=== PATIENT | female | born 1980 | race American Indian/Alaskan Native ===

== ENCOUNTER 2021-01-03 21:25 | Emergency (ER) | payer MEDICAID ==
--- NOTE | 2021-01-04 06:19 | Emergency Department Report ---
ED General Adult HPI - General Chief complaint: Upper Respiratory Infection Stated complaint: COLD LIKE SYMPTOMS/ASTHMA Time Seen by Provider: 01/04/21 05:08 Source: patient Mode of arrival: Ambulatory Limitations: No Limitations - History of Present Illness Initial comments: Patient 40-year-old -N[place]alese female who presents for asthma, patient st ates cough wheezing malaise. She denies fevers or chills. Patient states out of albuterol inhaler for the past 3 days. Patient declines chest x-ray as symptoms are rated at 3/10. Patient does have a primary care doctor has been unable to make appointment. Current symptoms are exacerbated by activity. Current symptoms are relieved by rest. This is normal course of asthma exacerbation for this patient. - Related Data Previous Rx's Medication Instructions Recorded Last Taken Type Albuterol Mdi (or & Nicu Only) 2 puff IH QID PRN #8.5 gram 01/04/21 Unknown Rx [ProAir HFA Inhaler] predniSONE [Deltasone] 40 mg PO QDAY 5 Days #10 tab 01/04/21 Unknown Rx ED Review of Systems ROS: Stated complaint: COLD LIKE SYMPTOMS/ASTHMA Other details as noted in HPI Constitutional: malaise ENT: congestion Respiratory: cough, shortness of breath, wheezing Cardiovascular: denies: chest pain, palpitations Endocrine: no symptoms reported Gastrointestinal: denies: abdominal pain, nausea, vomiting, diarrhea Genitourinary: denies: urgency, dysuria, discharge Musculoskeletal: denies: back pain, joint swelling, arthralgia Skin: denies: rash, lesions Neurological: denies: headache, weakness, paresthesias Psychiatric: denies: anxiety, depression Hematological/Lymphatic: denies: easy bleeding, easy bruising ED Past Medical Hx - Past Medical History Previous Medical History?: Yes Hx Asthma: Yes - Surgical History Past Surgical History?: No - Social History Smoking Status: Never Smoker Substance Use Type: None - Medications Home Medications: Home Medications Medication Instructions Recorded Confirmed Last Taken Type Albuterol Mdi (or & Nicu Only) 2 puff IH QID PRN #8.5 gram 01/04/21 Unknown Rx [ProAir HFA Inhaler] predniSONE [Deltasone] 40 mg PO QDAY 5 Days #10 tab 01/04/21 Unknown Rx ED Physical Exam - General Limitations: No Limitations General appearance: alert, in no apparent distress - Head Head exam: Present: atraumatic, normocephalic - Eye Eye exam: Present: normal appearance, PERRL, EOMI Pupils: Present: normal accommodation - ENT ENT exam: Present: mucous membranes moist - Neck Neck exam: Present: normal inspection, full ROM. Absent: tenderness, lymphadenopathy - Respiratory Respiratory exam: Present: wheezes. Absent: respiratory distress, rales, rhonchi, stridor, chest wall tenderness - Cardiovascular Cardiovascular Exam: Present: regular rate, normal rhythm, normal heart sounds. Absent: systolic murmur, diastolic murmur, rubs, gallop - GI/Abdominal GI/Abdominal exam: Present: soft. Absent: distended, tenderness - Rectal Rectal exam: Present: deferred - Extremities Exam Extremities exam: Present: normal inspection, full ROM, normal capillary refill. Absent: tenderness - Back Exam Back exam: Present: normal inspection, full ROM. Absent: CVA tenderness (R), CVA tenderness (L) - Neurological Exam Neurological exam: Present: alert, oriented X3, CN II-XII intact, normal gait - Psychiatric Psychiatric exam: Present: normal affect, normal mood - Skin Skin exam: Present: warm, dry, intact, normal color. Absent: rash ED Course Vital Signs 01/04/21 00:29 Temperature 98.0 F Pulse Rate 67 Respiratory 18 Rate Blood Pressure 140/88 O2 Sat by Pulse 98 Oximetry ED Medical Decision Making - Medical Decision Making Symptoms are mild. Will refill albuterol inhaler, prednisone, patient will follow-up with PCP in 2 to 3 days. Patient verbalized agreement and understanding with discharge plan. Patient DC to home in stable condition at this time. Critical care attestation.: If time is entered above; I have spent that time in minutes in the direct care of this critically ill patient, excluding procedure time. ED Disposition Clinical Impression: Asthma Qualifiers: Asthma severity: mild Asthma persistence: intermittent Asthma complication type: uncomplicated Qualified Code(s): J45.20 - Mild intermittent asthma, uncomplicated Disposition: DC-01 TO HOME OR SELFCARE Is pt being admited?: No Does the pt Need Aspirin: No Condition: Stable Instructions: Asthma (ED), Asthma, Adult Additional Instructions: Take medications as prescribed, follow-up with your doctor in 2 to 3 days. Return to emergency should symptoms worsen. Prescriptions: predniSONE [Deltasone] 40 mg PO QDAY 5 Days #10 tab Albuterol Mdi (or & Nicu Only) [ProAir HFA Inhaler] 2 puff IH QID PRN #8.5 gram PRN Reason: Shortness Of Breath Referrals: MARY BROWER MD [Staff Physician] - 3-5 Days Forms: Work/School Release Form(ED) Time of Disposition: 06:19
[2021-01-04 07:14] VITALS: BP 128/72
== END 2021-01-04 07:14 | disposition home or self-care (01) ==
LOC: ED 21:25
DX: J45.909 Unspecified asthma, uncomplicated (principal); Z79.899 Other long term (current) drug therapy
CPT/HCPCS: 99282

== ENCOUNTER 2021-07-07 16:59 | Emergency (ER) | payer MEDICAID ==
[2021-07-07 18:26] VITALS: BP 149/87
== END 2021-07-07 20:20 | disposition left against medical advice (07) ==
LOC: ED 16:59
DX: R07.89 Other chest pain (principal); Z53.21 Procedure and treatment not carried out due to patient leaving prior to being seen by health care provider

== ENCOUNTER 2021-10-11 10:36 | Emergency (ER) | payer MEDICAID ==
--- NOTE | 2021-10-11 11:16 | XRay Report ---
CHEST 2 VIEWS INDICATION / CLINICAL INFORMATION: sob. COMPARISON: None available. FINDINGS: SUPPORT DEVICES: None. HEART / MEDIASTINUM: No significant abnormality. LUNGS / PLEURA: No significant pulmonary or pleural abnormality. No pneumothorax. ADDITIONAL FINDINGS: No significant additional findings. IMPRESSION: 1. No acute findings. Signer Name: Twin Vincent MD Signed: 10/11/2021 11:12 AM Workstation Name: [id number]
[2021-10-11] MEDS ORDERED: IPRATROPIUM/ALBUTEROL SULFATE 3 ML AMPUL.NEB IH ONE (11:58)
[2021-10-11] MEDS ORDERED: predniSONE 20 MG TAB PO ONE (11:58)
[2021-10-11] MEDS ORDERED: BENZONATATE 100 MG CAP PO ONE (11:58)
--- NOTE | 2021-10-11 12:21 | Emergency Department Report ---
ED Shortness of Breath HPI - General Chief Complaint: Dyspnea/Respdistress Stated Complaint: ASTHMA Time Seen by Provider: 10/11/21 11:53 Source: patient Mode of arrival: Ambulatory Limitations: No Limitations - History of Present Illness Initial Comments: 41-year-old female the past medical history of asthma without previous intubations presents to the hospital complaining of increased wheezing and shortness of breath the last 2 days. Symptoms worse on exertion. Patient using her albuterol without improvement. She does not have a nebulizer. She is not currently on steroids. She complains of cough productive of yellow sputum and chest tightness. She denies fever, calf tenderness, or leg edema. - Related Data Previous Rx's Medication Instructions Recorded Last Taken Type Albuterol Mdi (or & Nicu Only) 2 puff IH QID PRN #8.5 gram 01/04/21 Unknown Rx [ProAir HFA Inhaler] predniSONE [Deltasone] 40 mg PO QDAY 5 Days #10 tab 10/11/21 Unknown Rx Allergies Allergy/AdvReac Type Severity Reaction Status Date / Time No Known Allergies Allergy Unverified 07/07/21 18:23 ED Review of Systems ROS: Stated complaint: ASTHMA Other details as noted in HPI Comment: All other systems reviewed and negative ED Past Medical Hx - Past Medical History Hx Asthma: Yes - Social History Smoking Status: Never Smoker Substance Use Type: None - Medications Home Medications: Home Medications Medication Instructions Recorded Confirmed Last Taken Type Albuterol Mdi (or & Nicu Only) 2 puff IH QID PRN #8.5 gram 01/04/21 Unknown Rx [ProAir HFA Inhaler] predniSONE [Deltasone] 40 mg PO QDAY 5 Days #10 tab 10/11/21 Unknown Rx ED Physical Exam - General Limitations: No Limitations - Other Other exam information: General: No acute distress Head: Atraumatic Eyes: normal appearance ENT: Moist mucous membranes Neck: Normal appearance, no midline tenderness Chest: Clear to auscultation bilaterally, frequent dry cough CV: Regular rate and rhythm Abdomen: Soft, normal bowel sounds, nontender, nondistended, no rebound or guarding Back: Normal inspection Extremity: Normal inspection, full range of motion, no calf tenderness or leg edema Neuro: Alert O x 3, no facial asymmetry, speech clear, no gross motor sensory deficit Psych: Appropriate behavior Skin: No rash ED Course Vital Signs 10/11/21 10/11/21 10/11/21 10:40 11:18 11:31 Temperature 98.4 F Pulse Rate 87 Pulse Rate [ Anterior Bilateral Throughout] Respiratory 18 Rate Respiratory Rate [Anterior Bilateral Throughout] Blood Pressure 135/82 137/85 132/86 O2 Sat by Pulse 95 93 97 Oximetry 10/11/21 10/11/21 10/11/21 11:45 12:01 12:07 Temperature Pulse Rate 75 Pulse Rate [ Anterior Bilateral Throughout] Respiratory Rate Respiratory Rate [Anterior Bilateral Throughout] Blood Pressure 152/86 158/97 O2 Sat by Pulse 98 99 Oximetry 10/11/21 10/11/21 10/11/21 12:12 12:15 12:31 Temperature Pulse Rate Pulse Rate [ 88 Anterior Bilateral Throughout] Respiratory Rate Respiratory 18 Rate [Anterior Bilateral Throughout] Blood Pressure 139/86 134/94 O2 Sat by Pulse 98 100 Oximetry 10/11/21 10/11/21 10/11/21 12:45 13:01 13:15 Temperature Pulse Rate Pulse Rate [ Anterior Bilateral Throughout] Respiratory Rate Respiratory Rate [Anterior Bilateral Throughout] Blood Pressure 144/106 150/84 150/77 O2 Sat by Pulse 99 99 99 Oximetry 10/11/21 10/11/21 13:31 13:45 Temperature Pulse Rate Pulse Rate [ Anterior Bilateral Throughout] Respiratory Rate Respiratory Rate [Anterior Bilateral Throughout] Blood Pressure 153/90 142/83 O2 Sat by Pulse 100 98 Oximetry - Reevaluation(s) Reevaluation #1: 10/11/21 14:01 Patient reports improvement after steroids, cough medicine and bronchodilators ED Medical Decision Making - EKG Data -: EKG Interpreted by Ga EKG shows normal: sinus rhythm, ST-T waves (No STEMI) Rate: normal - Radiology Data Radiology results: report reviewed Chest x-ray: No acute findings - Medical Decision Making 41-year-old female presents to the hospital with asthma exacerbation improved with ED treatment of steroids, Tessalon Perles, and duo nebs. X-ray unremarkable. Chest tightness has improved with ED treatment. No signs of ischemia on EKG. No signs of hypoxia Critical Care Time: No Critical care attestation.: If time is entered above; I have spent that time in minutes in the direct care of this critically ill patient, excluding procedure time. ED Disposition Clinical Impression: Acute asthma exacerbation Disposition: HOME / SELF CARE / HOMELESS Is pt being admited?: No Condition: Stable Instructions: Asthma, Adult Additional Instructions: Take the medication as prescribed. Follow-up with your doctor or doctor/clinic provided. Return if symptoms worsen as indicated by your discharge i nstructions. Prescriptions: predniSONE [Deltasone] 40 mg PO QDAY 5 Days #10 tab Referrals: PRIMARY CARE, [Primary Care Provider] - 3-5 Days RICO RALPH MD [Staff Physician] - 3-5 Days Time of Disposition: 14:03
[2021-10-11] MEDS ORDERED: BENZONATATE 100 MG CAP PO SCH (12:30)
[2021-10-11 14:29] VITALS: BP 131/87
--- NOTE | 2021-10-12 20:21 | Electrocardiograph Report ---
[facility] Test Date: 2021-10-11 Test Time: 11:58:47 Pat Name: VIKKI RAHMAN Department: Room: Gender: F Grade Teacher: [id number] : 1980 Requested By: MING NOBLE Order Number: [id number] Reading MD: Suzanna Goldstein Measurements Intervals [place] Rate: 76 P: 41 SD: 165 QRS: 18 QRSD: 86 T: 29 QT: 386 QTc: 435 Interpretive Statements Sinus rhythm No previous ECG available for comparison Electronically Signed On 10-12-2021 20:21:17 EDT by Suzanna Goldstein
== END 2021-10-11 14:29 | disposition home or self-care (01) ==
LOC: ED 10:36
DX: J45.901 Unspecified asthma with (acute) exacerbation (principal)
CPT/HCPCS: 71046; 93005; 94640; 94644; 99283